=== PATIENT | male | born 2000 | race Caucasian/White ===

== ENCOUNTER 2023-12-13 06:28 | Emergency (ER) | payer OTHER, SELFPAY ==
[2023-12-13 06:32] VITALS: BP 129/79; PULSE 70; TEMP 36.7; O2SAT 98
--- NOTE | 2023-12-13 06:34 | CT_ITS ---
The [address] [address] Patient Name: PETE MIN MRN: [id number] date: 2000 Sex: M Assigned Patient Location: ED.MAIN Current Patient Location: Accession/Order Number: [id number] Exam Date: 12/13/2023 06:50 Report Date: 12/13/2023 07:19 At the request of: SLAVA RUDD Procedure: CT cervical spine wo con EXAMINATION: CT cervical spine wo con HISTORY: head injury, AMS COMPARISON: No relevant comparison available. TECHNIQUE: Axial, Coronal, and Sagittal images were created without IV contrast. Dose reduction techniques were achieved by using automated exposure control and/or adjustment of mA and/or kV according to patient size and/or use of iterative reconstruction technique. FINDINGS: VERTEBRAL BODIES: Partial osseous fusion of C6-C7 vertebral bodies and left facets. Straightening of normal lordotic curvature. No fracture, spondylolisthesis, bone lesion. FACET JOINTS: No disruption or abnormal widening. DISCS: Normal spacing other than C6-C7 where there is congenital partial fusion. CENTRAL CANAL: No spinal stenosis or evidence of hemorrhage. PARASPINAL AREA: No visible mass. CT/CT cervical spine wo con IMPRESSION: 1. No appreciable acute abnormality. 2. Congenital partial fusion of C6-C7 levels. Electronically authenticated by: COURTNEY WADE Date: 12/13/2023 07:19
--- NOTE | 2023-12-13 06:34 | CT_ITS ---
The [address] [address] Patient Name: PETE MIN MRN: [id number] date: 2000 Sex: M Assigned Patient Location: ED.MAIN Current Patient Location: ER Accession/Order Number: [id number] Exam Date: 12/13/2023 06:45 Report Date: 12/13/2023 07:18 At the request of: SLAVA RUDD Procedure: CT head/brain wo con EXAMINATION: CT head/brain wo con, 12/13/2023 6:45 AM EDT HISTORY: head injury COMPARISON: None. TECHNIQUE: CT scan of the head was performed without IV contrast. CT dose reduction technique was used, including Automated Exposure Control. FINDINGS: BRAIN: No edema, hemorrhage, mass, acute infarction, or inappropriate atrophy. CSF SPACES: No hydrocephalus, subarachnoid hemorrhage, or mass. Appropriate for age. SKULL: No fracture, mass, or other significant visible lesion. SINUSES: No significant mucosal thickening or fluid on the limited views. ORBITS: No appreciable abnormality on the limited views. OTHER: Negative CT/CT head/brain wo con IMPRESSION: No acute intracranial abnormality Electronically authenticated by: FILIPPO BARTON Date: 12/13/2023 07:18
--- NOTE | 2023-12-13 06:50 | PC.NURSE ---
Pt presents to ER in a wheelchair with his fiance On arrival pt appears unresponsive in wheelchair with his head tipped back and not responding to verbal cues Pt experiencing tremors Pt is A&Ox4 but slow to respond Pupils are equal round and reactive Pt's fiance states a large cabinet with glassware fell off of the wall striking him in the head Pt has a laceration to the right side of his forehead with a hematoma rising under Per fiance pt was standing when she found him but was disoriented and stumbling before he eventually fell to the ground She got him up and to the vehicle
--- NOTE | 2023-12-13 06:57 | ED_ITS ---
HPI HPI - General Adult General Chief complaint: Head Injury Stated complaint: HEAD INJURY Time Seen by Provider: 12/13/23 06:29 Source: patient Mode of arrival: Wheelchair Limitations: no limitations History of Present Illness HPI narrative: 23-year-old male to the emergency department with chief complaint of head injury. Patient reports that he was lying in upright wall cabinet when it fell over and struck him in the head. He did not lose consciousness. He did not hit the ground. Fianc? reports he has had strange behavior since. Patient does not provide history.Fianc? reports a history of migraines, no blood thinner use. Related Data Allergies Allergy/AdvReac Type Severity Reaction Status Date / Time No Known Drug Allergies Allergy Verified 12/13/23 06:37 Opioid HPI Opioid Management Most Recent Opioid Data: No Data to Display Review of Systems ROS Status of ROS 10 or more systems reviewed and unremark able except as noted in history and below Exam Narrative Exam Narrative: VITALS: I have reviewed the triage vital signs. GENERAL: Adult male lying on cart with eyes closed shaking. NEURO: Alert and oriented x4. Moves all extremities. Face is symmetric and expressive. Cranial nerves II through XII grossly intact as tested. Muscular strength and sensation grossly intact upper and lower extremities bilaterally. No dysarthria. No aphasia. No ataxia. Normal gait. NIHSS 0. EYES: PERRL. No scleral icterus or conjunctival injection. No discharge. HENT: Normocephalic. Small superficial forehead laceration.Hearing is grossly intact. Nares grossly patent and without discharge. Mucous membranes moist. NECK: No JVD. Patient moves neck without restriction. CARDIO: Rhythm regular. Normal rate. No murmur, rub, or gallop. Pulses equal bilaterally in the upper and lower extremity. No lower extremity edema. PULM: Lungs clear to auscultation in all daniels. No wheezes, rales, or rhonchi. No conversational dyspnea. No splinting, stridor, or accessory muscle use. GI/: Abdomen is soft and non-tender. Normoactive bowel sounds. EXTREMITIES: Symmetric muscle bulk. No joint swelling. No clubbing, cyanosis, or deformity. SKIN: Warm and dry. Normal turgor. No rash or lesions appreciated. PSYCH: Strange affect Constitutional Vital Signs, click to edit/add: Last Vital Signs Temp 98.1 F 12/13/23 06:32 Pulse 70 12/13/23 06:32 Resp 18 12/13/23 06:32 BP 129/79 12/13/23 06:32 Pulse Ox 98 12/13/23 06:32 O2 Del Method Room Air 12/13/23 06:32 Course Vital Signs Vital signs: Vital Signs Temperature 98.1 F 12/13/23 06:32 Pulse Rate 70 12/13/23 06:32 Respiratory Rate 18 12/13/23 06:32 Blood Pressure 129/79 12/13/23 06:32 Pulse Oximetry 98 12/13/23 06:32 Oxygen Delivery Method Room Air 12/13/23 06:32 Temperature 98.1 F 12/13/23 06:32 Pulse Rate 70 12/13/23 06:32 Respiratory Rate 18 12/13/23 06:32 Blood Pressure 129/79 12/13/23 06:32 Pulse Oximetry 98 12/13/23 06:32 Oxygen Delivery Method Room Air 12/13/23 06:32 Medical Decision Making MDM Narrative Medical decision making narrative: 23-year-old male to the emergency room head injury. Vital stable, the patient is afebrile. He is lying on the shaking however when asked questions he answers appropriate. He follows commands. He is able to transition from the wheelchair to the bed himself. He denies any neck or back pain. Shaking is not consistent with seizure activity. CT head and cervical spine are ordered for evaluation of this traumatic injury Care signed out to Dr. Arenas. Discharge Plan Discharge Chief Complaint: Head Injury Clinical Impression: Closed head injury Patient Disposition: Still a Patient Print Language: Ch[place]
[2023-12-13] MEDS: KETOROLAC TROMETHAMINE 30 MG/ML VIAL IM (08:09)
[2023-12-13] MEDS: PROCHLORPERAZINE 10 MG/2 ML VIAL 5 MG IM (08:09)
[2023-12-13 08:13] VITALS: BP 135/84; PULSE 69; O2SAT 99
[2023-12-13 08:54] VITALS: BP 111/67; PULSE 86; O2SAT 97
== END 2023-12-13 09:13 | disposition home or self-care (01) ==
PROVIDERS: Emergency Provider Student in an Organized Health Care Education/Training Program; PCP Nurse Practitioner Family
DX: S06.0X0A Concussion without loss of consciousness, initial encounter (principal); S09.8XXA Other specified injuries of head, initial encounter; W20.8XXA Other cause of strike by thrown, projected or falling object, initial encounter
CPT/HCPCS: 70450; 72125; 96372; 99284